=== PATIENT | male | born 2000 | race Caucasian/White ===

== ENCOUNTER 2024-10-22 09:16 | Emergency (ER) | payer OTHER ==
[~2024-10-22] VITALS: Ht 180.3 cm; Wt 65.9 kg
[2024-10-22 09:17] VITALS: BP 119/67; PULSE 92; RESP 16; O2SAT 95
[2024-10-22] MEDS ORDERED: PRED20TA PO (10:37)
[2024-10-22 10:48] VITALS: TEMP 97
== END 2024-10-22 10:50 | disposition home or self-care (01) ==
LOC: ER 09:17
DX: B34.9 Viral infection, unspecified (principal)
CPT/HCPCS: 99283